=== PATIENT | male | born 1965 | race Caucasian/White ===

== ENCOUNTER 2018-08-13 07:48 | Day surgery (SDC) | payer MEDICARE, MEDICAID ==
--- NOTE | 2018-08-13 06:42 | History and Physical - [facility]ro ---
CHIEF COMPLAINT/HISTORY OF CHIEF COMPLAINT: This patient presents with a history of an intractable thoracic and lumbar radiculopathy. His treatment history has been extensive. Physical therapy, biomechanical treatments did not work. Cognitive service did not work. Surgical evaluation suggested no surgery. Due to the failure of all therapies he is here for an intraspinal catheter infusion trial with Hydromorphone to determine if the implantation of a permanent system can be of any value in pain control. 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 PAST SURGICAL HISTORY: Renal transplant, pancreatic transplant, and multiple eye surgeries. MEDICATIONS ON ADMISSION: List to be provided. No blood thinners. ALLERGIES: None. FAMILY/PSYCHOSOCIAL HISTORY: Social history - Smoking and social alcohol. Family history - Diabetes, MS and cancer. SYSTEMS REVIEW: The patient is appropriate in no acute distress. PHYSICAL EXAMINATION: Height is 5'7", weight is 170. No vital signs. HEENT: Within normal limits other than blindness. LUNGS: Clear. HEART: Rapid and regular. ABDOMEN: Nontender. MUSCULOSKELETAL: Examination of the musculoskeletal system shows diffuse tenderness which seems to extend throughout most of the lumbar spine from the lower rib margin through the lumbar spine. There is a bilateral lower extremity component across the front and back surface of both legs. Ambulation - Assistive device dependent. Some mild motor and sensory abnormalities into both legs. NEUROLOGIC: Cranial nerves are intact. IMPRESSION: INTRACTABLE LUMBAR RADICULOPATHY, ICD-10 CODE M54.16 AND M54.17. PLAN: The patient is here for an implanted spinal catheter infusion trial with Hydromorphone to determine if the implantation of a permanent system can be of any value in pain control. The procedure, side effects, and complications have been reviewed including nerve root trauma, nerve root injury, spinal cord injury, and paralysis. He understands that an epidural blood patch will be performed at the end of the procedure as a prophylactic measure against a spinal headache. The procedure will be considered outpatient although an overnight stay will be considered because of his blindness. He has been put in contact with a clinical specialist from [facility] who has also reviewed and discussed the procedure. The patient understands and has consented. JOB [facility]BER: [id number] [facility]
[~2018-08-13 07:48] MED LIST: ACETAMINOPHEN 1,000 MG/100 ML BTL IVPB ONE; CEFAZOLIN 1G VIAL IVP ONE; FAMOTIDINE 20MG TABLET PO ONE; HYDROMORPHONE PF 2MG/ML AMP 0.008 MG in 0.9 % SODIUM CHLORIDE 10ML VIA 0.996 ML IV ONE; HYDROMORPHONE PF 2MG/ML AMP 8 MG in 0.9 % SODIUM CHLORIDE 500ML 496 ML IV ONE; MECLIZINE 25 MG TABLET PO ONE; METOCLOPRAMIDE 10 MG TABLET PO ONE; WATER STERILE FOR INJECTION 20 ML VIAL MC ONE
[2018-08-13] MEDS ORDERED: FENTANYL PF 100MCG/2ML VIAL IV ONE (07:49)
[2018-08-13] MEDS ORDERED: PROPOFOL 10 MG/ML VIAL IV ONE (07:49)
[2018-08-13] MEDS ORDERED: LIDOCAINE 2% MDV (20MG/ML) 20ML VIAL IV ONE (07:49)
[2018-08-13] MEDS ORDERED: MIDAZOLAM HCL 2MG/2ML VIAL IV ONE (07:49)
[2018-08-13] MEDS ORDERED: 0.9 % SODIUM CHLORIDE 1000ML 1,000 ML IV ONE (08:30)
[2018-08-13] MEDS ORDERED: BUPIVACAINE 0.5% W/EPI MPF 30 ML VIAL SQ ONE ×2 (10:14)
[2018-08-13] MEDS ORDERED: LIDOCAINE 1% W/EPI 1:100,000 MDV 20 ML VIAL SQ ONE ×2 (10:14)
[2018-08-13] MEDS ORDERED: RINGERS SOLUTION,LACTATED 200 ML IV ONE (11:09)
[2018-08-13] MEDS ORDERED: RINGERS SOLUTION,LACTATED 1,000 ML IV SCH (12:45)
[2018-08-13] MEDS ORDERED: ACETAMINOPHEN 325 MG TAB PO PRN ×2 (12:45)
[2018-08-13] MEDS ORDERED: HYDROCODONE/APAP 7.5/325MG TABLET PO PRN ×2 (12:45)
[2018-08-13] MEDS ORDERED: TEMAZEPAM 15 MG CAPSULE PO PRN ×2 (12:45)
[2018-08-13] MEDS ORDERED: METOCLOPRAMIDE HCL 10 MG/2 ML VIAL IVP PRN (12:45)
[2018-08-13] MEDS ORDERED: NALOXONE 0.4 MG/1 ML VIAL IVP PRN (12:45)
[2018-08-13] MEDS ORDERED: METOCLOPRAMIDE 10 MG TABLET PO PRN (12:45)
[2018-08-13] MEDS ORDERED: OXYCODONE/APAP 10MG-325MG TABLET PO PRN ×2 (12:45)
[2018-08-13] MEDS ORDERED: HYDROMORPHONE HCL 2 MG/ML VIAL IM PRN ×2 (12:45)
[2018-08-13] MEDS ORDERED: AL HYDROX/MAG HYDROX 30ML UD PO PRN (12:45)
[2018-08-13] MEDS ORDERED: DIPHENHYDRAMINE HCL 50 MG/ML VIAL IVP PRN ×2 (12:45)
[2018-08-13] MEDS ORDERED: DIPHENHYDRAMINE HCL 25 MG CAPSULE PO PRN ×2 (12:45)
[2018-08-13] MEDS ORDERED: SENNOSIDES/DOCUSATE SODIUM UD CAPSULE PO PRN ×2 (12:45)
[2018-08-13] MEDS ORDERED: NOVOLOG FLEXPEN (INSULIN ASPART) 100 UNITS/ML SQ ONE ×2 (14:00→17:15)
[2018-08-13] MEDS ORDERED: CEFAZOLIN 1G VIAL IVP SCH (18:00)
--- NOTE | 2018-08-14 19:41 | RADIOLOGY REPORT ---
EXAM: SPINE, 1 VIEW HISTORY: PAIN CATHETER TRIAL. TECHNIQUE: A single AP portable supine view of the spine is obtained including the lower thoracic and lumbar portions. COMPARISON: None. FINDINGS: An intraspinal catheter is in place. Entrance into the spinal canal is indeterminate, though possibly at the L3-L4 level. The catheter tip is at the T10 level. There is mild osteopenia. No acute fracture is seen. No lytic or blastic bone lesion. There are mild degenerative changes scattered throughout the visualized spine. Minor dextroconvex curvature involving the upper lumbar and lower thoracic portions of the spine identified. Surgical change suture projects at the level of the right lower quadrant of the abdomen. There is diffuse arterial calcification. IMPRESSION: INTRASPINAL CATHETER IN PLACE, DISCUSSED ABOVE. JOB [facility]BER: [id number] [facility]
--- NOTE | 2018-08-15 08:30 | Operative Note ---
DATE OF SURGERY: 08/13/2018 PREOPERATIVE DIAGNOSIS: Intractable lumbar and thoracic radiculopathy, ICD10 code M54.16 and M54.14. OPERATION: 1. Fluoroscopic-guided access to spinal space at L3-4, placement of thin-walled spinal catheter T10 upper end plate. 2. Diagnostic myelography with radiologic supervision and interpretation. 3. Spinal opioid bolus hydromorphone spinal space 0.004 mg. 4. Incision, subcutaneous dissection, and anchoring spinal catheter to supraspinous fascia with anchor device and nonabsorbable suture. 5. Incision, subcutaneous dissection, and creation of subcutaneous pouch at left flank for placement eventually for pump. 6. Tunneling midline catheter into left flank pouch, interface spinal catheter with second catheter component by way of connector. 7. Tunneling secondary catheter component from pouch 6 cm superior exiting the skin, interface external catheter to pump set to deliver hydromorphone at 0.08 mg a day. 8. Closure of flank incision with running nylon, closure of midline incision with Vicryl for fascia and running nylon for skin. 9. Epidural blood patch 20 mL autologous blood drawn sterile technique, left antecubital, performed at L4-5 using 18-gauge Tuohy needle with loss of resistance. Atraumatic. No blood, no CSF. 10. Dressings placed securing catheter, all connections under the sterile dressing. Patient transported to recovery room stable. No unusual side effects. Full functionality of extremities. No unusual pain patterns. Patient kept flat, pillow under head and knees. Will be flat for 4 hours, slowly elevated for 1, and be considered for possible evaluation for discharge. SURGEON: Yobany Munoz DO ANESTHESIA: Local with sedation. ANESTHESIA PROVIDER: Micheal Cortes INDICATION: This patient presents with a history of intractable thoracic and lumbar radiculopathy. Due to the failure of all therapies, no surgical options, and the failure of injections, medications, and conservative therapy, she is here for a spinal infusion trial with an implanted catheter and hydromorphone to determine if the implantation of a permanent system can be of any value in pain control. PROCEDURE: Intravenous line, vital sign monitoring, IV sedation. Prepped and draped with sterile technique. With the patient prone, the spinal interspace at L3-4 marked, infiltrated. A 20-gauge spinal needle beveled along axis paramedial approach was used to gain entry to the spinal space. This was accomplished by AP and lateral imaging. The needle advanced into the space under lateral imaging. With CSF flow, a thin-walled spinal catheter was advanced, positioned at upper endplate T10. CSF was still noted through the catheter. Diagnostic myelography was performed. The flow characteristics showed midline spinal flow, appropriate characteristics. No unusual response on the part of the patient. A bolus of hydromorphone 0.004 mg given through the spinal catheter. Catheter clamped to stop CSF leak. The skin above and below the needle infiltrated. Incision made and subcutaneous dissection was conducted to the supraspinous fascia. The needle was removed and the catheter was anchored to the supraspinous fascia with a Splice anchor and nonabsorbable suture. At the left flank, eventually the spot for the pump, skin infiltrated, incision made, and subcutaneous dissection was conducted to form a small subcutaneous pouch. The need was then extended into this pouch and interfaced with a second catheter component by way of connector. This second catheter component was tunneled from this pouch 6 cm superior exiting the skin. The secondary catheter component was then interfaced with an external pump which was set to deliver hydromorphone at 0.08 mg a day. Antibiotic irrigation and Bovie for hemostasis. The flank incision was closed with a running nylon. The midline incision was closed with Vicryl for fascia and a running nylon for skin. Dressing placed. At L4-5, which was one level below the dural puncture, skin infiltrated. An 18- gauge Tuohy needle with loss of resistance atraumatic into the epidural space. No blood, no CSF. Simultaneously, 20 mL autologous blood drawn sterile technique from the left antecubital. This blood placed onto the field and an epidural blood patch was performed at this site with this blood. The needle was removed. Dressings were reinforced securing the catheter, all connections under the sterile dressing. He was transported to the recovery room flat, pillow under head and knees, stable. No unusual side effects. He had full functionality of the extremities. He will be kept flat for 4 hours, slowly elevated for 1, and be kept overnight for observation. DISCHARGE INSTRUCTIONS: 1. The sites are to remain clean and dry. No showering or bathing in any way that would disrupt dressings. 2. Standard medications resumed including the antibiotic Levaquin. He will take 500 mg once a day for 14 days. 3. The trial is scheduled for 2 weeks; 14 days. During this period of time, we will set up 3 increases. At the end of the trial period, we will either implant the device or remove the implanted catheter. Spinal opioid side effects include respiratory depression, nausea, vomiting, constipation, urinary retention, lightheadedness and rash have all been discussed and reviewed. Other instructions provided. Numbers to contact if problems given. He will be discharged in the morning. CC: DO FRANCISCO Jain
== END 2018-08-13 18:55 | disposition home or self-care (01) ==
LOC: SUR 07:48 → MEDSURG 11:32 → SUR 18:55
PROVIDERS: ATTEND Pain Medicine Interventional Pain Medicine
DX: M54.16 Radiculopathy, lumbar region (principal); M54.14 Radiculopathy, thoracic region; E11.9 Type 2 diabetes mellitus without complications; Z79.4 Long term (current) use of insulin; I10 Essential (primary) hypertension; E78.00 Pure hypercholesterolemia, unspecified; H54.7 Unspecified visual loss; Z94.0 Kidney transplant status; Z94.83 Pancreas transplant status
CPT/HCPCS: 62350; 62362; 62273; 01936; 36416; 82948; 72020; Q9967; J3010; J1815; J1170; J0690; J7030; J7040; J7120

== ENCOUNTER 2018-08-27 07:14 | Day surgery (SDC) | payer MEDICARE, MEDICAID ==
--- NOTE | 2018-08-27 06:49 | History and Physical - Ferro ---
CHIEF COMPLAINT/HISTORY OF CHIEF COMPLAINT: This patient with an implanted spinal catheter infusion of Hydromorphone ongoing is here for removal of the device because of pending vascular surgery of the carotid artery. PAST MEDICAL HISTORY: She is clinically blind, chronic bladder and renal disease, diabetes, hypertension, and gastroesophageal reflux. PAST SURGICAL HISTORY: Renal transplant, pancreatic transplant, and multiple eye surgeries. MEDICATIONS ON ADMISSION: List to be provided. ALLERGIES: None. FAMILY/PSYCHOSOCIAL HISTORY: Social history - Unchanged. Family history - Unchanged. SYSTEMS REVIEW: Unchanged. PHYSICAL EXAMINATION: Height is 5'7", weight is 170. Vital signs are not available. HEENT: Within normal limits. The patient is clinically blind. LUNGS: Clear. HEART: Rapid. ABDOMEN: Nontender. MUSCULOSKELETAL: The dressings for the implanted catheter trial are intact. External infusion device is in place. Primary pain pattern is thoracic and lumbar. There are some mild lower extremity components with mild motor and sensory abnormalities into both legs. Ambulation - Assistive device utilized. NEUROLOGIC: Cranial nerves are intact. IMPRESSION: 1. INTRACTABLE THORACIC AND LUMBAR RADICULOPATHY, ICD-10 CODE M54.14 AND M54.16. 2. IMPLANTED SPINAL CATHETER INFUSION TRIAL OF HYDROMORPHONE. PLAN: The patient is here for termination of the trial. 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 We opted to end the trial rather than complete the implantation to avoid the potential conflicts between the surgeries. The risks, side effects, and complications have been reviewed and discussed. JOB NUMBER: [id number] [facility]
[~2018-08-27 07:14] MED LIST changes: -CEFAZOLIN 1G VIAL IVP ONE; +CEFAZOLIN 2 Gram 2 GM/50 ML BAG IVPB SCH; +HYDROMORPHONE HCL 0.06 GM in 0.9 % SODIUM CHLORIDE 10ML VIA 20 ML IV ONE; -HYDROMORPHONE PF 2MG/ML AMP 8 MG in 0.9 % SODIUM CHLORIDE 500ML 496 ML IV ONE; -WATER STERILE FOR INJECTION 20 ML VIAL MC ONE
[2018-08-27] MEDS ORDERED: KETAMINE HCL 100MG/1ML VIAL INJ ONE (07:15)
[2018-08-27] MEDS ORDERED: PROPOFOL 10 MG/ML VIAL IV ONE (07:15)
[2018-08-27] MEDS ORDERED: FENTANYL PF 100MCG/2ML VIAL IV ONE (07:15)
[2018-08-27] MEDS ORDERED: LIDOCAINE 2% MDV (20MG/ML) 20ML VIAL IV ONE (07:15)
[2018-08-27] MEDS ORDERED: 0.9 % SODIUM CHLORIDE 1000ML 1,000 ML IV ONE (07:50)
[2018-08-27] MEDS ORDERED: LIDOCAINE 1% W/EPI 1:200,000 MPF 30ML SQ ONE (09:58)
[2018-08-27] MEDS ORDERED: BUPIVACAINE 0.5% W/EPI MPF 30 ML VIAL SQ ONE (09:58)
[2018-08-27] MEDS ORDERED: CEFAZOLIN 0.5 G in 0.9 % SODIUM CHLORIDE 1000ML 500 ML IVP ONE (09:59)
[2018-08-27] MEDS ORDERED: OXYCODONE/APAP 10MG-325MG TABLET PO ONE (10:53)
--- NOTE | 2018-08-28 17:01 | Operative Note ---
DATE OF SURGERY: 08/27/2018 PREOPERATIVE DIAGNOSES: 1. Intractable thoracic and lumbar radiculopathy, ICD10 code M54.14 and M54.16. 2. Implanted spinal catheter infusion trial of hydromorphone. OPERATION: 1. Incision, subcutaneous dissection, and removal of implanted spinal catheter. 2. Incision, subcutaneous dissection, and removal of external spinal catheter interfaced to implanted catheter. SURGEON: Yobany Munoz DO ANESTHESIA: Local with sedation. ANESTHESIA PROVIDER: Bibiana Harry CRNA INDICATION: This patient presents with intractable thoracic and lumbar radiculopathy. Due to the failure of therapy, an implanted spinal catheter infusion trial of hydromorphone was conducted. His end rate infusion was 0.16 mg a day with 75% pain control. Although a successful trial, during the trial period he became symptomatic, was evaluated and found to have a critical stenosis of the carotid artery. He started a workup with indications that he would be going to carotid surgery within the latter part of the implanted catheter trial to early postoperative period subsequent to implant. It was felt because of this to be a prudent appropriate measure to remove the implanted catheter and not implant a device so as not to create any added considerations or concerns for either side effects or complications which may present relative to the system and his vascular surgery. The trial was successful but we are terminating the trial. We can, at a future time should the patient choose, move forward on an implant without the trial. PROCEDURE: Intravenous line, vital signs monitoring, IV sedation by Anesthesia. Patient positioned prone. Sterile prep, sterile technique. The pouch for the external catheter on the left flank was identified and prepped. The midline spinal catheter placed to the site, prepped, sterile technique and local for infiltration to both sides. The running nylon suture was removed at both. The left posterior gluteal margin pouch was opened. The connection between the internal and external catheter was clamped and cut. The external catheter was removed by pulling away from the incision. The midline incision was then infiltrated, incision made, subcutaneous dissection was conducted to the implanted catheter. Suture for the anchor was cut and removed intact. A purse string suture was placed around the penetration point for the spinal catheter. The spinal catheter was then removed intact. The radiopaque feed at the tip identified. The purse string suture was closed, stopping any CSF leak. Antibiotic irrigation and Bovie for hemostasis at both sides. Both incisions were then closed using 2-0 nylon and truong for skin. A dressing was placed which would allow, because of water impermeability, showering. He was then transported to the recovery room. The entire catheter and its connections had been removed intact. Imaging had confirmed. He was stable in the recovery room. He was monitored until stable and prepared for discharge. DISCHARGE INSTRUCTIONS: 1. The sites will remain clean and dry. He should not shower or bathe in any way that would disrupt the dressings. Although the op site Tegaderm dressing will allow showering, its water impermeability should not sit in shower. Should the dressings come loose, he should contact the clinic for replacement. 2. Standard medications resumed including Levaquin antibiotic 500 mg that he will take for another 7-10 days. He has been provided a 7-day prescription of [place] 10/325 at 5 a day which he will take for incisional pain. 3. Since there was no opioid at this point, there would be no withdrawal effects and there would be no indications of side effects. All other instructions have been provided. He will be monitored and evaluated over the next 7-10 days. CC: DO FRANCISCO Jain
== END 2018-08-27 11:05 | disposition home or self-care (01) ==
LOC: SUR 07:14
PROVIDERS: ATTEND Pain Medicine Interventional Pain Medicine
DX: M54.14 Radiculopathy, thoracic region (principal); M54.16 Radiculopathy, lumbar region; E11.9 Type 2 diabetes mellitus without complications; Z79.4 Long term (current) use of insulin; I10 Essential (primary) hypertension; E78.00 Pure hypercholesterolemia, unspecified; H54.7 Unspecified visual loss; Z94.0 Kidney transplant status
CPT/HCPCS: 36416; 82948; J0690; J1170; J3490; J7030

== ENCOUNTER 2019-01-21 08:48 | Day surgery (SDC) | payer MEDICARE, MEDICAID ==
--- NOTE | 2018-12-03 07:31 | History and Physical - Ferro ---
CHIEF COMPLAINT/HISTORY OF CHIEF COMPLAINT: This patient with a history of an intractable lumbar radiculopathy has a complicated history of clinical blindness, chronic bladder renal disease, diabetes, hypertension, gastroesophageal reflux, and carotid vascular disease. After a successful implanted catheter trial on 10/08/18 he was scheduled for implanted device, again the implanted catheter trial was successful. It was at that time noted that he was developing carotid artery disease and it was felt that he was going to require a carotid artery surgery for which case the implanted catheter was trialed and the implant was cancelled. Since that time it has been evaluated, found not to require the carotid artery surgery and due to the failure of all therapy and the success of the previous trial he is here for requesting implant of a permanent system. PAST MEDICAL HISTORY: He is clinically blind, chronic bladder and renal disease, diabetes, hypertension, and gastroesophageal reflux. PAST SURGICAL HISTORY: Renal transplant, pancreatic transplant, and multiple eye surgeries. MEDICATIONS ON ADMISSION: List to be provided. ALLERGIES: None. FAMILY/PSYCHOSOCIAL HISTORY: Family history - None listed. Social history - Smoking and social alcohol. SYSTEMS REVIEW: The patient seems appropriate in no acute distress. PHYSICAL EXAMINATION: Height is 5'7", weight is 170. HEENT: Within normal limits. LUNGS: Clear. HEART: Rapid and regular. ABDOMEN: Nontender. MUSCULOSKELETAL: Examination of the musculoskeletal system shows diffuse tenderness throughout the cervicothoracic spine. There is pain across the rib margins, lower abdomen and upper legs. No motor or sensory abnormalities of the lower extremities. NEUROLOGIC: Cranial nerves are intact. He is clinically blind. IMPRESSION: INTRACTABLE THORACIC RADICULOPATHY, ICD-10 CODE M54.14. PLAN: The patient is here for implantation of a permanent intrathecal infusion system by his request. We will follow the initial procedure in terms of catheter placement and pump placement. It would appear based upon the previous notations that the catheter placement was T10 and the pump pouch was positioned such that the device would be placed on his left flank. We will follow the same parameters. The potential risks, side effects, and complications have been reviewed and discussed over time, an epidural blood patch will be performed which will require an overnight stay. Information has been given, reviewed and discussed previously through the development team lead of which he is still familiar. J[facility]BER: [id number] [facility]
--- NOTE | 2019-01-20 13:24 | History and Physical - Ferro ---
CHIEF COMPLAINT/HISTORY OF CHIEF COMPLAINT: This patient with a history of an intractable thoracic and lumbar spine pain had an implanted spinal catheter infusion trial with Hydromorphone which seemed to help providing 75% pain control. Unfortunately at the end of the trial period he was evaluated by a vascular surgeon who felt he needed carotid artery surgery and for that reason the implant was cancelled and the implanted catheter trial was terminated. Eventually his management was conservatively based, no surgery was necessary, he presents today for implantation of a permanent system based upon a successful trial. PAST MEDICAL HISTORY: Clinical blindness, chronic bladder and renal disease, diabetes, hypertension, gastroesophageal reflux, and vascular pain. PAST SURGICAL HISTORY: Renal transplant, pancreatic transplant, and multiple eye surgeries. MEDICATIONS ON ADMISSION: List to be provided. ALLERGIES: None. FAMILY/PSYCHOSOCIAL HISTORY: Social history - Smoking and social alcohol. Family history - Diabetes, multiple sclerosis, and cancer. SYSTEMS REVIEW: The patient seems appropriate in no acute distress. PHYSICAL EXAMINATION: Height is 5'7", weight is 170. No vital signs. HEENT: Within normal limits. LUNGS: Clear. HEART: Rapid and regular. ABDOMEN: Nontender. MUSCULOSKELETAL: Examination of the musculoskeletal system shows her primary pain to be diffusely throughout the thoracic and lumbar spine. It extends along the rib margins and extends along the flank towards the lower extremities. Ambulation - No assistive device utilized. NEUROLOGIC: Cranial nerves are intact. He is clinically blind. IMPRESSION: THORACIC AND LUMBAR RADICULOPATHY, ICD-10 CODE M54.14 AND M54.16. PLAN: The patient is here for implantation of a permanent spinal infusion system with catheter based upon a previous successful trial. The procedure will involve an overnight stay. The potential risks, side effects and complications have been reviewed and discussed over time. He was put in contact with a clinical wireless sales representative who also discussed and reviewed. JOB NUMBER: [id number] [facility]
[~2019-01-21 08:48] MED LIST changes: +CEFAZOLIN 2 Gram 2 GM/50 ML BAG IVPB ONE; -CEFAZOLIN 2 Gram 2 GM/50 ML BAG IVPB SCH; +HYDROMORPHONE HCL 0.04 GM in 0.9 % SODIUM CHLORIDE 10ML VIA 20 ML IV ONE
[2019-01-21] MEDS ORDERED: MIDAZOLAM HCL 2MG/2ML VIAL IV ONE (08:49)
[2019-01-21] MEDS ORDERED: LIDOCAINE 2% MDV (20MG/ML) 20ML VIAL IV ONE (08:49)
[2019-01-21] MEDS ORDERED: FENTANYL PF 100MCG/2ML VIAL IV ONE (08:49)
[2019-01-21] MEDS ORDERED: PROPOFOL 10 MG/ML VIAL IV ONE (08:49)
[2019-01-21] MEDS ORDERED: 0.9 % SODIUM CHLORIDE 1000ML 1,000 ML IV ONE (09:50)
[2019-01-21] MEDS ORDERED: BUPIVACAINE 0.5% W/EPI MPF 30 ML VIAL SQ ONE (12:32)
[2019-01-21] MEDS ORDERED: CEFAZOLIN 1G VIAL IR ONE (12:32)
[2019-01-21] MEDS ORDERED: LIDOCAINE 1% W/EPI 1:200,000 MPF 30ML SQ ONE (12:32)
[2019-01-21] MEDS ORDERED: HYDROMORPHONE HCL 2 MG/ML VIAL IV ONE (13:01)
[2019-01-21] MEDS ORDERED: DIPHENHYDRAMINE HCL 25 MG CAPSULE PO PRN ×2 (14:00)
[2019-01-21] MEDS ORDERED: METOCLOPRAMIDE HCL 10 MG/2 ML VIAL IVP PRN (14:00)
[2019-01-21] MEDS ORDERED: SENNOSIDES/DOCUSATE SODIUM UD CAPSULE PO PRN ×2 (14:00)
[2019-01-21] MEDS ORDERED: NALOXONE 0.4 MG/1 ML VIAL IVP PRN (14:00)
[2019-01-21] MEDS ORDERED: AL HYDROX/MAG HYDROX 30ML UD PO PRN (14:00)
[2019-01-21] MEDS ORDERED: HYDROMORPHONE HCL 2 MG/ML VIAL IM PRN ×2 (14:00)
[2019-01-21] MEDS ORDERED: TEMAZEPAM 15 MG CAPSULE PO PRN (14:00)
[2019-01-21] MEDS ORDERED: METOCLOPRAMIDE 10 MG TABLET PO PRN (14:00)
[2019-01-21] MEDS ORDERED: ACETAMINOPHEN 325 MG TAB PO PRN (14:00)
[2019-01-21] MEDS ORDERED: DIPHENHYDRAMINE HCL 50 MG/ML VIAL IVP PRN ×2 (14:00)
[2019-01-21] MEDS ORDERED: OXYCODONE/APAP 10MG-325MG TABLET PO PRN ×2 (14:00)
[2019-01-21] MEDS: 0.9 % SODIUM CHLORIDE 1000ML 1,000 ML IV SCH ×2 (14:15→22:50)
--- NOTE | 2019-01-21 14:22 | Operative Note - [place] ---
DATE OF SURGERY: 01/21/2019 PREOPERATIVE DIAGNOSIS: THORACIC AND LUMBAR RADICULOPATHY, ICD-10 CODE M54.14 AND M54.16. OPERATION: 1. FLUOROSCOPICALLY GUIDED SPINAL ACCESS AT L4-L5, PLACEMENT OF THIN WALLED SPINAL CATHETER T10. 2. DIAGNOSTIC MYELOGRAPHY WITH RADIOLOGIC SUPERVISION AND INTERPRETATION. 3. SPINAL OPIOID BOLUS HYDROMORPHONE 0.004 MG SPINAL SPACE. 4. INCISION, SUBCUTANEOUS DISSECTION, ANCHORING OF SPINAL CATHETER TO THE SUPRASPINOUS FASCIA WITH ANCHORING DEVICE AND NONABSORBABLE SUTURE. 5. INCISION, SUBCUTANEOUS DISSECTION, CREATION OF SUBCUTANEOUS POUCH AT LEFT FLANK FOR PLACEMENT OF PUMP IDENTIFIED MEDTRONIC 20 ML PROGRAMMABLE. 6. TUNNELLING OF SPINAL CATHETER IN LEFT FLANK POUCH CREATED TO ACCOMMODATE PUMP. 7. INTERFACE SPINAL CATHETER SECOND CATHETER COMPONENT BY WAY OF CONNECTOR. 8. PLACEMENT OF 20 ML PROGRAMMABLE PUMP PREFILLED HYDROMORPHONE 1 MG PER ML ONTO FIELD, INTERFACED WITH REVISED SPINAL CATHETER. 9. PLACEMENT OF PUMP CATHETER COMBINATION INTO POUCH AT LEFT FLANK SECURING TO POSTERIOR FASCIA WITH NONABSORBABLE SUTURE THREE POINTS PUMP EYELETS, ACCESS PORT 1:00 O'CLOCK. 10. PLACEMENT OF CURVED 24-GAUGE PARADA NEEDLE ACCESS PORT ASPIRATION AND CLEARING CATHETER OF OPIOID AND CSF MIXTURE. 11. CONTRAST INJECTION THROUGH ACCESS PORT, THE RESULTING MYELOGRAM WITH RADIOLOGIC SUPERVISION AND INTERPRETATION CONFIRMING ALL CONNECTIONS, CONFIRMING CATHETER POSITION, SHOWING FUNCTIONALITY OF THE SYSTEM. 12. PROGRAMMING OF PUMP TO DELIVER BY CONTINUOUS INFUSION HYDROMORPHONE AT 0.10 MG A DAY. 13. CLOSURE OF BOTH INCISIONS STRATAFIX SUTURE 2-0 FASCIA, 3-0 SKIN, DERMABOND CLOSURE. 14. EPIDURAL BLOOD PATCHY AT L5-S1 20 ML AUTOLOGOUS BLOOD STERILE TECHNIQUE LEFT ANTECUBITAL. 15. DERMABOND DRESSING PLACED APPROXIMATING THE EDGES OF BOTH WOUNDS. THE PATIENT WAS TRANSPORTED TO THE RECOVERY ROOM IN STABLE CONDITION, FLAT UNDER HEAD AND KNEES, STABLE NO UNUSUAL PAIN PATTERNS. VITAL SIGNS ARE STABLE. SURGEON: Yobany Munoz D.O. ANESTHESIA: Local sedation. ANESTHESIA PROVIDER: Micheal Cortes CRNA INDICATION: This patient with a history of an intractable lumbar radiculopathy had a previous implanted catheter infusion trial with Hydromorphone which was 75% successful in controlling pain. Other medical issues prevented the patient from moving on to a permanent. Since he has had a successful trial he is here for permanent implantation. PROCEDURE: The patient was positioned prone, sterile prep, sterile technique, imaging for guidance. Local for infiltration. The previous incision for the implanted catheter trial was identified, infiltrated with local, this approximated L4-L5. A 20-gauge spinal needle paramedian approach, bevel along the long access and inserted into the spinal space using AP and lateral imaging. The needle was advanced into the spinal space on lateral image. With CSF flow a thin walled spinal catheter was positioned at T10 which is the previous catheter tip location. Diagnostic myelography showed appropriate flow characteristics. There had been CSF flow through the catheter prior to the contrast injection. The myelogram demonstrating appropriate flow characteristics and catheter position. A bolus of Hydromorphone at 0.004 mg given through the catheter into the spinal space. The catheter was clamped to stop CSF leak which continued. The skin above and below the needle was further infiltrated, incision was made, and subcutaneous dissection was conducted in the supraspinous fascia. The needle was removed and the catheter was anchored to the supraspinous fascia with an anchoring device and nonabsorbable suture. At the left flank which is the previous site for the implanted catheter trial, site picked by the patient, skin infiltrated, incision made, and subcutaneous dissection was conducted to form a pouch of suitable size and depth for the pump, a 20 ml programmable Medtronic. A tunnelling tool was used to carry the spinal catheter into the flank pouch, the spinal catheter was then interfaced with the second catheter component by way of connector. A pump 20 ml programmable Medtronic prefilled Hydromorphone 1 mg per ml placed onto the field. The revised catheter was then interfaced to the pump. Antibiotic irrigation, Bovie for hemostasis on both sides. The pump was placed in the flank pouch and secured to the fascia with nonabsorbable suture three points pump eyelets. The pump was placed into the pouch with the access port at 1:00 o'clock. A 24-gauge Parada needle was inserted into the access port, and 1 ml of catheter contents aspirated and then contrast was injected. The resulting myelogram demonstrating full connections intact, functionality of the system, contrast flow at T10 noted. Both incisions were then closed using Stratafix suture 2-0 fascia, 3-0 skin and Dermabond closure. At the L5-S1 level below the dural puncture the skin was infiltrated, an 18-gauge Tuohy needle with loss of resistance into the space simultaneously 20 ml autologous blood drawn, sterile technique from the antecubital and then passed onto the field. An epidural blood patchy was then performed with this blood at this level. The needle was removed, the sites and the Dermabond was reinforced. He was then transported to the Recovery Room in stable flat, pillow under the knees. He was showing no unusual pain patterns, full functionality of the extremities. He will be kept flat for four hours, slowly elevated for one and be kept overnight for observation. He will be discharged in the morning. DISCHARGE INSTRUCTIONS: 1. The sites are to remain clean and dry although the Dermabond will allow showering. He should not sit in water. 2. Standard medications resumed including the antibiotic Levaquin, he will take 500 mg one a day for fourteen days. 3. Office to contact the patient in 12-24 hours to set up a time in 7-10 days for us to evaluate the sites. Through this period of time he is to keep his activities low, limit bend, lift, push, pull. Spinal opioid side effects such as respiratory depression, constipation, urinary retention, and rash have all been reviewed and discussed. He will be discharged in the morning. JOB NUMBER: [id number] MTDD
[2019-01-21] MEDS: HYDROCODONE/APAP 7.5/325MG TABLET PO PRN ×3 (15:23→20:22)
[2019-01-21] MEDS: NOVOLOG FLEXPEN (INSULIN ASPART) 100 UNITS/ML SQ SCH (17:56)
[2019-01-21] MEDS: CEFAZOLIN 2 Gram 2 GM/50 ML BAG IVPB SCH (20:07)
[2019-01-21] MEDS: MOVANTIK 12.5 MG PO SCH (21:38)
[2019-01-21] MEDS: AMLODIPINE 5MG PO SCH (21:39)
[2019-01-21] MEDS: ACIPHEX 20MG PO SCH (21:43)
[2019-01-21] MEDS: MYCOPHENOLATE 180 MG PO SCH (21:44)
[2019-01-21] MEDS: TACROLIMUS 1 MG PO SCH (21:47)
[2019-01-21] MEDS ORDERED: TRAZODONE 150 MG PO SCH (22:00)
[2019-01-21] MEDS ORDERED: GABAPENTIN 100 MG CAPSULE PO SCH (22:00)
[2019-01-21] MEDS ORDERED: FERROUS SULFATE 325MG PO SCH (22:00)
[2019-01-21] MEDS ORDERED: ATORVASTATIN 40MG PO SCH (22:00)
[2019-01-21] MEDS ORDERED: CARVEDILOL 12.5MG PO SCH (22:00)
[2019-01-21] MEDS ORDERED: LANTUS INSULIN SC SCH (22:00)
[2019-01-21] MEDS: CLONIDINE 0.1MG PO SCH (23:09)
[2019-01-21] MEDS: GABAPENTIN 100 MG PO SCH (23:09)
[2019-01-21] MEDS: [UNRECOGNIZED DRUG - OTHER] PO SCH (23:10)
[2019-01-21] MEDS: DOXYCYCLINE 100 MG PO SCH (23:44)
[2019-01-22] MEDS: HYDROCODONE/APAP 7.5/325MG TABLET PO PRN ×2 (03:43→07:41)
[2019-01-22] MEDS: CEFAZOLIN 2 Gram 2 GM/50 ML BAG IVPB SCH ×2 (04:43→10:27)
[2019-01-22] MEDS: NOVOLOG FLEXPEN (INSULIN ASPART) 100 UNITS/ML SQ SCH ×2 (07:36→08:41)
[2019-01-22] MEDS: AMLODIPINE 5MG PO SCH ×2 (08:00→10:20)
[2019-01-22] MEDS: CAPTOPRIL 12.5 MG PO SCH ×2 (08:02→10:20)
[2019-01-22] MEDS: CLONIDINE 0.1MG PO SCH ×2 (08:02→10:21)
[2019-01-22] MEDS: ACIPHEX 20MG PO SCH ×2 (08:04→10:20)
[2019-01-22] MEDS: GABAPENTIN 100 MG PO SCH ×2 (08:05→10:22)
[2019-01-22] MEDS: MYCOPHENOLATE 180 MG PO SCH ×2 (08:06→10:21)
[2019-01-22] MEDS: PREDNISONE 10MG PO SCH ×2 (08:07→10:22)
[2019-01-22] MEDS: TACROLIMUS 1 MG PO SCH ×2 (08:08→10:22)
[2019-01-22] MEDS: [UNRECOGNIZED DRUG - OTHER] PO SCH ×2 (08:11→10:23)
[2019-01-22] MEDS: MOVANTIK 12.5 MG PO SCH ×2 (08:12→10:21)
[2019-01-22] MEDS: SENSIPAR 30 MG PO SCH ×2 (08:24→10:22)
[2019-01-22] MEDS: DOXYCYCLINE 100 MG PO SCH ×2 (08:26→10:21)
[2019-01-22] MEDS: 0.9 % SODIUM CHLORIDE 1000ML 1,000 ML IV SCH (08:36)
--- NOTE | 2019-01-23 16:57 | RADIOLOGY REPORT ---
EXAMINATION: Lumbar Spine Single View EXAM DATE: 01/21/2019 1:39 PM TECHNIQUE: Frontal view INDICATION: S/P PAIN PUMP IMPLANT COMPARISON: August 13, 2018 ENCOUNTER: Initial FINDINGS: A single frontal view of the lumbar spine was obtained. There is an implanted device on the left side positioned cephalad to the left iliac crests with a sin gle catheter that enters the lumbar spinal canal at the L4-5 level and extends in a cephalad directio n with the tip positioned at the T10 level. Mild multilevel endplate degenerative changes are seen in the lumbar spine. No acute fracture is visi ble. IMPRESSION: 1. Left-sided implanted device with a catheter extending in a cephalad direction with the tip overlyi ng the T10 level. Dictated by: Chris Marshall MD on 01/23/2019 4:53 PM. .
== END 2019-01-22 12:15 | disposition home or self-care (01) ==
LOC: SUR 08:48 → MEDSURG 13:40 → SUR 01-22 12:15
PROVIDERS: ATTEND Pain Medicine Interventional Pain Medicine
DX: M54.14 Radiculopathy, thoracic region (principal); M54.16 Radiculopathy, lumbar region; I10 Essential (primary) hypertension; E78.00 Pure hypercholesterolemia, unspecified; E11.9 Type 2 diabetes mellitus without complications; Z79.4 Long term (current) use of insulin; Z94.83 Pancreas transplant status; Z94.0 Kidney transplant status; H54.8 Legal blindness, as defined in USA
CPT/HCPCS: 36416; 62367; 72020; 82948; 94010; 94760; 94761; C1776; J0690; J1170; J7030